=== PATIENT | male | born 1955 | race Caucasian/White ===

== ENCOUNTER 2016-09-19 21:15 | Inpatient (IN) | payer OTHER ==
[~2016-09-19] VITALS: Ht 177.8 cm; Wt 134.1 kg
[~2016-09-19 21:15] MED LIST: ASPI-1093 PO; ATOR40TA28 PO; BUPR75 PO; CARV6 PO; CLOP75 PO; FENO67 PO; FURO40 PO; GLUC1TAB PO; IPRA4AER IH; LISI40TA4 PO; OMEP20TA86 PO; OXYB5XL PO; POTA8TAB4 PO; VITAD1000 PO; [UNRECOGNIZED DRUG - CODE] PO
[2016-09-19 21:43] LABS: BASOPHILS % (AUTO) 0.6 % (0.0-2.0); EOSINOPHILS % (AUTO) 9.2 % (1.0-6.0); HEMATOCRIT 47.3 % (41-53); HEMOGLOBIN 15.9 g/dL (13.5-17.5); LYMPHOCYTES # (AUTO) 2.3 K/uL (1.0-4.8); LYMPHOCYTES % (AUTO) 24.4 % (22.0-44.0); MEAN CORPUSCULAR HEMOGLOBIN 31.5 pg (26.0-34.0); MEAN CORPUSCULAR HGB CONC 33.6 G/dL (31.0-37.0); MEAN CORPUSCULAR VOLUME 94 fL (80-100); MONOCYTES # (AUTO) 0.7 K/uL (0.1-1.0); MONOCYTES % (AUTO) 7.1 % (2.0-9.0); NEUTROPHILS # (AUTO) 5.6 K/uL (1.8-7.7); NEUTROPHILS % (AUTO) 58.7 % (40.0-70.0); PLATELET COUNT (AUTO) 226 K/uL (150-450); RED BLOOD CELL COUNT(AUTO) 5.04 MIL/uL (4.50-5.90); RED CELL DISTRIBUTION WIDTH 13.3 % (11.5-14.5); WHITE BLOOD COUNT (AUTO) 9.5 K/uL (4.5-11.0)
[2016-09-19 21:50] LABS: ANION GAP 7 mmol/L (8-16); CARBON DIOXIDE 31 mmol/L (22-29); CHLORIDE 106 mmol/L (98-107); CREATININE 0.96 mg/dL (0.60-1.30); GLOMERULAR FILTR. RATE CALC > 60 mL/min (>60); SODIUM SERUM 144 mmol/L (136-145); UREA NITROGEN, BLOOD 18 mg/dL (7-18)
[2016-09-19] MEDS ORDERED: IPRATROPIUM BROMIDE 0.5 MG/2.5 ML NEB SOLUTION NEB ONE ×2 (22:00→23:45)
[2016-09-19] MEDS ORDERED: ALBUTEROL SULFATE 2.5 MG/0.5 ML NEB SOLUTION NEB ONE (22:00)
[2016-09-19 22:11] LABS: B-TYPE NATRIURETIC PEPTIDE 17 pg/mL (0-100)
[2016-09-19 22:15] LABS: ALANINE AMINOTRANSFERASE 39 U/L (12-78); ALBUMIN 3.9 g/dL (3.4-5.0); ASPARTATE AMINOTRANSFERASE 22 U/L (15-37); BILIRUBIN,TOTAL 0.5 mg/dL (0.1-1.0); CREATINE KINASE MB 2.8 ng/mL (0-5); CREATINE KINASE, TOTAL 281 U/L (39-308); TOTAL PROTEIN, SERUM 7.2 g/dL (6.4-8.2)
[2016-09-19] MEDS ORDERED: MethylPREDNISolone SOD SUCC 125 MG/2 ML VIAL IVP ONE (23:00)
[2016-09-19] MEDS ORDERED: ACETAMINOPHEN 325 MG TABLET PO PRN (23:45)
[2016-09-19] MEDS ORDERED: 0.9% SODIUM CHLORIDE 10 ML SYRINGE IVP PRN (23:45)
[2016-09-19] MEDS ORDERED: OXYGEN THERAPY IH SCH (23:45)
[2016-09-19] MEDS ORDERED: ONDANSETRON HCL 4 MG/2 ML VIAL IVP PRN (23:45)
[2016-09-19] MEDS ORDERED: ALBUTEROL SULFATE 5 MG/ML 20 ML NEB SOLN [BULK] NEB ONE (23:45)
[2016-09-19] MEDS ORDERED: CefTRIAXone 1 GM/DEXTROSE 50 ML IV ONE (23:45)
[2016-09-20] MEDS ORDERED: GuaiFENesin/D-METHORPHAN/PHENYLEPH 5 ML LIQUID ORAL.SYG PO PRN (01:45)
[2016-09-20] MEDS ORDERED: MAGNESIUM HYDROXIDE SUSPENSION 30 ML UDCUP PO PRN (01:45)
[2016-09-20] MEDS ORDERED: IPRATROPIUM BROMIDE 0.5 MG/2.5 ML NEB SOLUTION NEB PRN (01:45)
[2016-09-20] MEDS ORDERED: ZOLPIDEM TARTRATE 5 MG TABLET PO PRN (01:45)
[2016-09-20] MEDS ORDERED: ACETAMINOPHEN 325 MG TABLET PO PRN (01:45)
[2016-09-20] MEDS ORDERED: ONDANSETRON HCL 4 MG/2 ML VIAL IVP PRN (01:45)
[2016-09-20] MEDS ORDERED: ALBUTEROL SULFATE 2.5 MG/0.5 ML NEB SOLUTION NEB PRN (01:45)
[2016-09-20] MEDS ORDERED: BISACODYL 10 MG RECTAL RECTAL SUPPOSITORY PR PRN (01:45)
[2016-09-20] MEDS ORDERED: IBUPROFEN 600 MG TABLET PO PRN (01:45)
[2016-09-20] MEDS ORDERED: BENZOCAINE/MENTHOL LOZENGE [8 LOZENGES/PACKET] MM PRN (02:00)
[2016-09-20] MEDS ORDERED: IPRATROPIUM BROMIDE 0.5 MG/2.5 ML NEB SOLUTION NEB SCH (03:00)
[2016-09-20] MEDS ORDERED: ALBUTEROL SULFATE 2.5 MG/0.5 ML NEB SOLUTION NEB SCH (03:00)
[2016-09-20 04:38] LABS: INFLUENZA TYPE B NEGATIVE FOR TYPE B (NEGATIVE)
[2016-09-20] MEDS: CHOLECALCIFEROL (VIT D3) 1,000 UNITS TABLET PO SCH (08:56)
[2016-09-20] MEDS: CARVEDILOL 25 MG TABLET PO SCH (08:56)
[2016-09-20] MEDS: FENOFIBRATE,MICRONIZED 67 MG CAPSULE PO SCH (08:56)
[2016-09-20] MEDS: CLOPIDOGREL BISULFATE 75 MG TABLET PO SCH (08:56)
[2016-09-20] MEDS: BuPROPion HCL 75 MG TABLET PO SCH ×2 (08:56→17:11)
[2016-09-20] MEDS: HEPARIN SODIUM,PORCINE 5,000 UNITS/ML VIAL SQ SCH (08:57)
[2016-09-20] MEDS: ASPIRIN 81 MG EC TABLET PO SCH (08:57)
[2016-09-20] MEDS: POTASSIUM CHLORIDE 8 MEQ ER TABLET PO SCH (08:57)
[2016-09-20] MEDS: MethylPREDNISolone SOD SUCC 125 MG/2 ML VIAL IVP SCH ×2 (08:57→16:42)
[2016-09-20] MEDS: OXYBUTYNIN CHLORIDE 5 MG ER TABLET PO SCH (08:57)
[2016-09-20] MEDS: FUROSEMIDE 40 MG TABLET PO SCH (08:58)
[2016-09-20] MEDS ORDERED: OMEPRAZOLE 20 MG CAPSULE PO SCH (09:00)
[2016-09-20 20:40] VITALS: BP 142/86
[2016-09-20 23:14] VITALS: BP 138/101
[2016-09-21] MEDS: OXYBUTYNIN CHLORIDE 5 MG ER TABLET PO SCH ×3 (00:43→21:08)
[2016-09-21] MEDS: ATORVASTATIN CALCIUM 40 MG TABLET PO SCH ×2 (00:43→20:59)
[2016-09-21] MEDS: FUROSEMIDE 40 MG TABLET PO SCH ×3 (00:43→20:58)
[2016-09-21] MEDS: CARVEDILOL 25 MG TABLET PO SCH ×3 (00:43→20:59)
[2016-09-21] MEDS: HEPARIN SODIUM,PORCINE 5,000 UNITS/ML VIAL SQ SCH ×3 (00:44→20:58)
[2016-09-21] MEDS: MethylPREDNISolone SOD SUCC 125 MG/2 ML VIAL IVP SCH ×4 (00:44→20:58)
[2016-09-21] MEDS: BuPROPion HCL 75 MG TABLET PO SCH ×4 (00:44→21:08)
[2016-09-21 04:59] VITALS: BP 113/72
[2016-09-21 07:06] LABS: EOSINOPHILS % (AUTO) 0 % (1.0-6.0); HEMATOCRIT 45.6 % (41-53); LYMPHOCYTES # (AUTO) 1.3 K/uL (1.0-4.8); LYMPHOCYTES % (AUTO) 6.4 % (22.0-44.0); MEAN CORPUSCULAR HEMOGLOBIN 31.3 pg (26.0-34.0); MEAN CORPUSCULAR VOLUME 95 fL (80-100); MONOCYTES # (AUTO) 0.5 K/uL (0.1-1.0); MONOCYTES % (AUTO) 2.6 % (2.0-9.0); NEUTROPHILS # (AUTO) 18.6 K/uL (1.8-7.7); PLATELET COUNT (AUTO) 240 K/uL (150-450); RED CELL DISTRIBUTION WIDTH 13.2 % (11.5-14.5); WHITE BLOOD COUNT (AUTO) 20.5 K/uL (4.5-11.0)
[2016-09-21 07:15] VITALS: BP 117/83
[2016-09-21 07:32] LABS: ALANINE AMINOTRANSFERASE 40 U/L (12-78); ALBUMIN 3.7 g/dL (3.4-5.0); ANION GAP 8 mmol/L (8-16); ASPARTATE AMINOTRANSFERASE 23 U/L (15-37); BILIRUBIN,TOTAL 0.6 mg/dL (0.1-1.0); CALCIUM, TOTAL 9.3 mg/dL (8.8-10.5); CARBON DIOXIDE 29 mmol/L (22-29); CHLORIDE 104 mmol/L (98-107); CREATININE 0.94 mg/dL (0.60-1.30); GLOMERULAR FILTR. RATE CALC > 60 mL/min (>60); PHOSPHORUS 3.7 mg/dL (2.5-4.9); SODIUM SERUM 141 mmol/L (136-145); TOTAL PROTEIN, SERUM 7.1 g/dL (6.4-8.2); UREA NITROGEN, BLOOD 26 mg/dL (7-18)
[2016-09-21] MEDS: POTASSIUM CHLORIDE 8 MEQ ER TABLET PO SCH (09:05)
[2016-09-21] MEDS: CHOLECALCIFEROL (VIT D3) 1,000 UNITS TABLET PO SCH (09:05)
[2016-09-21] MEDS: CLOPIDOGREL BISULFATE 75 MG TABLET PO SCH (09:05)
[2016-09-21] MEDS: FENOFIBRATE,MICRONIZED 67 MG CAPSULE PO SCH (09:05)
[2016-09-21] MEDS: ASPIRIN 81 MG EC TABLET PO SCH (09:05)
[2016-09-21] MEDS: PANTOPRAZOLE SODIUM 40 MG DR TABLET PO SCH (09:05)
[2016-09-21 11:35] VITALS: BP 125/70
[2016-09-21 16:19] VITALS: BP 106/54
[2016-09-21 19:40] VITALS: BP 136/59
[2016-09-21 23:26] VITALS: BP 126/63
[2016-09-22 04:44] VITALS: BP 99/58
[2016-09-22 07:12] VITALS: BP 102/52
[2016-09-22] MEDS: BuPROPion HCL 75 MG TABLET PO SCH ×2 (07:55→15:21)
[2016-09-22] MEDS: CARVEDILOL 25 MG TABLET PO SCH (07:56)
[2016-09-22] MEDS: PANTOPRAZOLE SODIUM 40 MG DR TABLET PO SCH (07:56)
[2016-09-22] MEDS: CLOPIDOGREL BISULFATE 75 MG TABLET PO SCH (07:56)
[2016-09-22] MEDS: FENOFIBRATE,MICRONIZED 67 MG CAPSULE PO SCH (07:56)
[2016-09-22] MEDS: MethylPREDNISolone SOD SUCC 125 MG/2 ML VIAL IVP SCH ×2 (07:56→15:21)
[2016-09-22] MEDS: POTASSIUM CHLORIDE 8 MEQ ER TABLET PO SCH (07:56)
[2016-09-22] MEDS: OXYBUTYNIN CHLORIDE 5 MG ER TABLET PO SCH (07:56)
[2016-09-22] MEDS: HEPARIN SODIUM,PORCINE 5,000 UNITS/ML VIAL SQ SCH (07:56)
[2016-09-22] MEDS: FUROSEMIDE 40 MG TABLET PO SCH (07:56)
[2016-09-22] MEDS: CHOLECALCIFEROL (VIT D3) 1,000 UNITS TABLET PO SCH (07:56)
[2016-09-22] MEDS: ASPIRIN 81 MG EC TABLET PO SCH (07:56)
[2016-09-22 11:51] VITALS: BP 107/56
[2016-09-22 16:02] VITALS: BP 116/59
== END 2016-09-22 18:10 | disposition left against medical advice (07) | DRG 133 ==
LOC: EDUNIT# 21:15 → EMS 21:16 → 6N 09-20 18:49
PROVIDERS: ADMIT Internal Medicine; ATTEND Internal Medicine
DX: J96.20 Acute and chronic respiratory failure, unspecified whether with hypoxia or hypercapnia (principal); I42.9 Cardiomyopathy, unspecified; J44.1 Chronic obstructive pulmonary disease with (acute) exacerbation; I11.0 Hypertensive heart disease with heart failure; I50.9 Heart failure, unspecified; Z68.41 Body mass index [BMI] 40.0-44.9, adult; E55.9 Vitamin D deficiency, unspecified; K21.9 Gastro-esophageal reflux disease without esophagitis; E66.9 Obesity, unspecified; E78.5 Hyperlipidemia, unspecified; F17.210 Nicotine dependence, cigarettes, uncomplicated; I25.10 Atherosclerotic heart disease of native coronary artery without angina pectoris; J45.909 Unspecified asthma, uncomplicated; Z60.2 Problems related to living alone; M19.90 Unspecified osteoarthritis, unspecified site; Z95.810 Presence of automatic (implantable) cardiac defibrillator; Z79.02 Long term (current) use of antithrombotics/antiplatelets; Z79.82 Long term (current) use of aspirin; Z79.51 Long term (current) use of inhaled steroids; Z79.899 Other long term (current) drug therapy; Z88.5 Allergy status to narcotic agent; Z71.6 Tobacco abuse counseling
CPT/HCPCS: 83735; 84100; 85379; 87040; 87804; 93005; 94060; 94640; 96361; 96374; 99285; J0696; J1644; J2930

== ENCOUNTER 2016-10-18 19:17 | Inpatient (IN) | payer OTHER ==
[~2016-10-18] VITALS: Ht 177.8 cm; Wt 132.0 kg
[2016-10-18] MEDS ORDERED: CARV25 PO (19:38)
[2016-10-18] MEDS ORDERED: ATOR40TA28 PO (19:38)
[2016-10-18 20:22] LABS: BASOPHILS % (AUTO) 0.6 % (0.0-2.0); EOSINOPHILS % (AUTO) 7.5 % (1.0-6.0); HEMATOCRIT 47.9 % (41-53); HEMOGLOBIN 16.2 g/dL (13.5-17.5); LYMPHOCYTES # (AUTO) 2.3 K/uL (1.0-4.8); MEAN CORPUSCULAR HEMOGLOBIN 31.6 pg (26.0-34.0); MEAN CORPUSCULAR HGB CONC 33.8 G/dL (31.0-37.0); MEAN CORPUSCULAR VOLUME 93 fL (80-100); MONOCYTES # (AUTO) 0.8 K/uL (0.1-1.0); MONOCYTES % (AUTO) 8.2 % (2.0-9.0); NEUTROPHILS # (AUTO) 6.1 K/uL (1.8-7.7); NEUTROPHILS % (AUTO) 60.7 % (40.0-70.0); PLATELET COUNT (AUTO) 275 K/uL (150-450); RED BLOOD CELL COUNT(AUTO) 5.12 MIL/uL (4.50-5.90); RED CELL DISTRIBUTION WIDTH 13.3 % (11.5-14.5)
[2016-10-18 20:25] LABS: ANION GAP 10 mmol/L (8-16); CALCIUM, TOTAL 9.2 mg/dL (8.8-10.5); CARBON DIOXIDE 30 mmol/L (22-29); CHLORIDE 100 mmol/L (98-107); CREATININE 1.36 mg/dL (0.60-1.30); GLOMERULAR FILTR. RATE CALC 53 mL/min (>60); SODIUM SERUM 140 mmol/L (136-145); UREA NITROGEN, BLOOD 26 mg/dL (7-18)
[2016-10-18] MEDS ORDERED: IPRATROPIUM BROMIDE 0.5 MG/2.5 ML NEB SOLUTION NEB ONE ×3 (20:30→21:30)
[2016-10-18] MEDS ORDERED: ALBUTEROL SULFATE 2.5 MG/0.5 ML NEB SOLUTION NEB ONE (20:30)
[2016-10-18 20:50] LABS: ALANINE AMINOTRANSFERASE 60 U/L (12-78); ALBUMIN 4.2 g/dL (3.4-5.0); ASPARTATE AMINOTRANSFERASE 30 U/L (15-37); BILIRUBIN,TOTAL 0.9 mg/dL (0.1-1.0); CREATINE KINASE MB 2.4 ng/mL (0-5); CREATINE KINASE, TOTAL 272 U/L (39-308); TOTAL PROTEIN, SERUM 7.8 g/dL (6.4-8.2)
[2016-10-18 20:59] LABS: B-TYPE NATRIURETIC PEPTIDE 10 pg/mL (0-100)
[2016-10-18] MEDS ORDERED: ALBUTEROL SULFATE 5 MG/ML 20 ML NEB SOLN [BULK] NEB ONE ×2 (21:00→21:30)
[2016-10-18] MEDS ORDERED: MethylPREDNISolone SOD SUCC 125 MG/2 ML VIAL IVP ONE (21:30)
[2016-10-19] MEDS ORDERED: IPRATROPIUM BROMIDE 0.5 MG/2.5 ML NEB SOLUTION NEB ONE (00:45)
[2016-10-19] MEDS ORDERED: ALBUTEROL SULFATE 5 MG/ML 20 ML NEB SOLN [BULK] NEB ONE (00:45)
[2016-10-19] MEDS ORDERED: 0.9% SODIUM CHLORIDE 5 ML NEB SOLUTION NEB ONE (01:02)
[2016-10-19] MEDS ORDERED: 0.9% SODIUM CHLORIDE 10 ML SYRINGE IVP PRN (02:45)
[2016-10-19] MEDS ORDERED: ACETAMINOPHEN 325 MG TABLET PO PRN ×2 (02:45→06:45)
[2016-10-19] MEDS ORDERED: MAGNESIUM SULFATE 2 GM in DEXTROSE 5%-WATER 50 ML IV ONE (02:45)
[2016-10-19] MEDS ORDERED: ONDANSETRON HCL 4 MG/2 ML VIAL IVP PRN (02:45)
[2016-10-19 03:56] VITALS: BP 143/94
[2016-10-19] MEDS ORDERED: IBUP100O11 PO (04:07)
[2016-10-19] MEDS ORDERED: MAGNESIUM HYDROXIDE SUSPENSION 30 ML UDCUP PO PRN (06:45)
[2016-10-19] MEDS: MethylPREDNISolone SOD SUCC 125 MG/2 ML VIAL IVP SCH ×4 (06:55→23:53)
[2016-10-19 08:00] VITALS: BP 119/73
[2016-10-19] MEDS: ALBUTEROL SULFATE 2.5 MG/0.5 ML NEB SOLUTION NEB PRN ×4 (08:33→19:15)
[2016-10-19] MEDS: IPRATROPIUM BROMIDE 0.5 MG/2.5 ML NEB SOLUTION NEB PRN ×4 (08:33→19:15)
[2016-10-19] MEDS: DOCUSATE SODIUM 100 MG CAPSULE PO SCH ×2 (08:33→20:53)
[2016-10-19] MEDS: PANTOPRAZOLE SODIUM 40 MG DR TABLET PO SCH (08:33)
[2016-10-19] MEDS: HEPARIN SODIUM,PORCINE 5,000 UNITS/ML VIAL SQ SCH ×3 (08:34→23:53)
[2016-10-19] MEDS: ASPIRIN 81 MG CHEWABLE TABLET PO SCH (08:34)
[2016-10-19 12:00] VITALS: BP 115/71
[2016-10-19 16:03] VITALS: BP 121/83
[2016-10-19 19:38] VITALS: BP 114/72
[2016-10-19] MEDS ORDERED: SODIUM CHLORIDE 0.9% 500 ML IV ONE (20:21)
[2016-10-19] MEDS: ZOLPIDEM TARTRATE 5 MG TABLET PO PRN (20:53)
[2016-10-19 23:09] VITALS: BP 110/65
[2016-10-20 04:28] VITALS: BP 100/72
[2016-10-20] MEDS: MethylPREDNISolone SOD SUCC 125 MG/2 ML VIAL IVP SCH ×4 (05:47→23:51)
[2016-10-20 06:26] LABS: ANION GAP 11 mmol/L (8-16); CALCIUM, TOTAL 9.3 mg/dL (8.8-10.5); CARBON DIOXIDE 27 mmol/L (22-29); CHLORIDE 103 mmol/L (98-107); CREATININE 1.16 mg/dL (0.60-1.30); GLOMERULAR FILTR. RATE CALC > 60 mL/min (>60); POTASSIUM 4.2 mmol/L (3.5-5.1); SODIUM SERUM 141 mmol/L (136-145); UREA NITROGEN, BLOOD 39 mg/dL (7-18)
[2016-10-20 07:10] VITALS: BP 120/80
[2016-10-20] MEDS: ASPIRIN 81 MG CHEWABLE TABLET PO SCH (08:57)
[2016-10-20] MEDS: HEPARIN SODIUM,PORCINE 5,000 UNITS/ML VIAL SQ SCH ×3 (08:57→23:51)
[2016-10-20] MEDS: PANTOPRAZOLE SODIUM 40 MG DR TABLET PO SCH (08:57)
[2016-10-20] MEDS: DOCUSATE SODIUM 100 MG CAPSULE PO SCH ×2 (08:57→20:26)
[2016-10-20 11:10] VITALS: BP 126/69
[2016-10-20] MEDS ORDERED: 0.9% SODIUM CHLORIDE 10 ML SYRINGE IVP PRN (14:30)
[2016-10-20 16:11] VITALS: BP 132/74
[2016-10-20] MEDS ORDERED: FENOFIBRATE,MICRONIZED 67 MG CAPSULE PO SCH (16:30)
[2016-10-20] MEDS: NICOTINE 21 MG/24 HOUR PATCH TD SCH (17:37)
[2016-10-20] MEDS: CLOPIDOGREL BISULFATE 75 MG TABLET PO SCH (17:38)
[2016-10-20] MEDS: CHOLECALCIFEROL (VIT D3) 1,000 UNITS TABLET PO SCH (17:38)
[2016-10-20] MEDS: ASPIRIN 81 MG EC TABLET PO SCH (17:38)
[2016-10-20] MEDS: LISINOPRIL 20 MG TABLET PO SCH (17:38)
[2016-10-20] MEDS: POTASSIUM CHLORIDE 8 MEQ ER TABLET PO SCH (17:39)
[2016-10-20] MEDS: FUROSEMIDE 40 MG TABLET PO SCH ×2 (17:56→20:27)
[2016-10-20 20:05] VITALS: BP 124/66
[2016-10-20] MEDS: OXYBUTYNIN CHLORIDE 5 MG ER TABLET PO SCH (20:26)
[2016-10-20] MEDS: ATORVASTATIN CALCIUM 40 MG TABLET PO SCH (20:26)
[2016-10-20] MEDS: CARVEDILOL 25 MG TABLET PO SCH (20:26)
[2016-10-20] MEDS: BuPROPion HCL 75 MG TABLET PO SCH (20:26)
[2016-10-20] MEDS ORDERED: BuPROPion HCL 75 MG TABLET PO SCH (21:00)
[2016-10-20] MEDS ORDERED: FUROSEMIDE 40 MG TABLET PO SCH (21:00)
[2016-10-20] MEDS: ZOLPIDEM TARTRATE 5 MG TABLET PO PRN (23:49)
[2016-10-20 23:54] VITALS: BP 112/86
[2016-10-21 04:58] VITALS: BP 102/57
[2016-10-21] MEDS: MethylPREDNISolone SOD SUCC 125 MG/2 ML VIAL IVP SCH (05:39)
[2016-10-21 08:10] VITALS: BP 130/64
[2016-10-21] MEDS: HEPARIN SODIUM,PORCINE 5,000 UNITS/ML VIAL SQ SCH ×3 (08:33→23:34)
[2016-10-21] MEDS: DOCUSATE SODIUM 100 MG CAPSULE PO SCH ×2 (08:35→20:31)
[2016-10-21] MEDS: LISINOPRIL 20 MG TABLET PO SCH (08:37)
[2016-10-21] MEDS: BuPROPion HCL 75 MG TABLET PO SCH ×3 (08:37→21:31)
[2016-10-21] MEDS: PredniSONE 20 MG TABLET PO SCH (08:37)
[2016-10-21] MEDS: NICOTINE 21 MG/24 HOUR PATCH TD SCH (08:38)
[2016-10-21] MEDS: CHOLECALCIFEROL (VIT D3) 1,000 UNITS TABLET PO SCH (08:39)
[2016-10-21] MEDS: CARVEDILOL 25 MG TABLET PO SCH ×2 (08:39→20:31)
[2016-10-21] MEDS: OXYBUTYNIN CHLORIDE 5 MG ER TABLET PO SCH ×2 (08:39→20:31)
[2016-10-21] MEDS: ASPIRIN 81 MG EC TABLET PO SCH (08:40)
[2016-10-21] MEDS: FUROSEMIDE 40 MG TABLET PO SCH ×2 (08:40→20:31)
[2016-10-21] MEDS: PANTOPRAZOLE SODIUM 40 MG DR TABLET PO SCH (08:41)
[2016-10-21] MEDS: CLOPIDOGREL BISULFATE 75 MG TABLET PO SCH (08:42)
[2016-10-21] MEDS: POTASSIUM CHLORIDE 8 MEQ ER TABLET PO SCH (10:33)
[2016-10-21 11:46] VITALS: BP 97/65
[2016-10-21 16:28] VITALS: BP 109/50
[2016-10-21 20:02] VITALS: BP 96/61
[2016-10-21] MEDS: ATORVASTATIN CALCIUM 40 MG TABLET PO SCH (20:31)
[2016-10-21] MEDS: ZOLPIDEM TARTRATE 5 MG TABLET PO PRN (21:31)
[2016-10-21 23:40] VITALS: BP 91/62
[2016-10-22 05:06] VITALS: BP 98/68
[2016-10-22] MEDS: LISINOPRIL 20 MG TABLET PO SCH (08:07)
[2016-10-22] MEDS: DOCUSATE SODIUM 100 MG CAPSULE PO SCH (08:07)
[2016-10-22] MEDS: CHOLECALCIFEROL (VIT D3) 1,000 UNITS TABLET PO SCH (08:07)
[2016-10-22] MEDS: ASPIRIN 81 MG EC TABLET PO SCH (08:07)
[2016-10-22] MEDS: CLOPIDOGREL BISULFATE 75 MG TABLET PO SCH (08:07)
[2016-10-22] MEDS: NICOTINE 21 MG/24 HOUR PATCH TD SCH (08:08)
[2016-10-22] MEDS: OXYBUTYNIN CHLORIDE 5 MG ER TABLET PO SCH (08:08)
[2016-10-22] MEDS: BuPROPion HCL 75 MG TABLET PO SCH (08:08)
[2016-10-22] MEDS: PredniSONE 20 MG TABLET PO SCH (08:08)
[2016-10-22] MEDS: PANTOPRAZOLE SODIUM 40 MG DR TABLET PO SCH (08:08)
[2016-10-22] MEDS: CARVEDILOL 25 MG TABLET PO SCH (08:08)
[2016-10-22] MEDS: POTASSIUM CHLORIDE 8 MEQ ER TABLET PO SCH (08:09)
[2016-10-22] MEDS: FUROSEMIDE 40 MG TABLET PO SCH (08:13)
[2016-10-22] MEDS: HEPARIN SODIUM,PORCINE 5,000 UNITS/ML VIAL SQ SCH (08:14)
[2016-10-22 08:33] VITALS: BP 113/65
[2016-10-22 11:44] VITALS: BP 96/72
== END 2016-10-22 14:03 | disposition home or self-care (01) | DRG 140 ==
LOC: EMS 19:21 → 6N 10-19 03:00
PROVIDERS: ADMIT Internal Medicine; ATTEND Internal Medicine
DX: J44.1 Chronic obstructive pulmonary disease with (acute) exacerbation (principal); N17.9 Acute kidney failure, unspecified; I42.9 Cardiomyopathy, unspecified; E44.0 Moderate protein-calorie malnutrition; Z68.41 Body mass index [BMI] 40.0-44.9, adult; I11.0 Hypertensive heart disease with heart failure; I50.9 Heart failure, unspecified; E66.01 Morbid (severe) obesity due to excess calories; I25.10 Atherosclerotic heart disease of native coronary artery without angina pectoris; J11.1 Influenza due to unidentified influenza virus with other respiratory manifestations; F17.210 Nicotine dependence, cigarettes, uncomplicated; E78.5 Hyperlipidemia, unspecified; F15.90 Other stimulant use, unspecified, uncomplicated; F25.9 Schizoaffective disorder, unspecified; R73.9 Hyperglycemia, unspecified; R32 Unspecified urinary incontinence; E86.0 Dehydration; Z53.29 Procedure and treatment not carried out because of patient's decision for other reasons; Z95.810 Presence of automatic (implantable) cardiac defibrillator; Z22.322 Carrier or suspected carrier of Methicillin resistant Staphylococcus aureus; Z79.82 Long term (current) use of aspirin; Z88.6 Allergy status to analgesic agent; M19.90 Unspecified osteoarthritis, unspecified site
CPT/HCPCS: 87040; 87081; 93005; 94640; 94644; 96361; 96374; 99285; J1644; J2930; J3475; J7040; J7060

== ENCOUNTER 2016-12-07 23:45 | Inpatient (IN) | payer OTHER ==
[~2016-12-07] VITALS: Ht 177.8 cm; Wt 135.9 kg
[~2016-12-07 23:45] MED LIST changes: -FENO67 PO; -GLUC1TAB PO; -IPRA4AER IH; -LISI40TA4 PO
[2016-12-08] VITALS (7 sets, daily range): BP systolic 106–144; BP diastolic 65–82
[2016-12-08] MEDS ORDERED: MethylPREDNISolone SOD SUCC 125 MG/2 ML VIAL IVP ONE ×2 (00:15→08:00)
[2016-12-08] MEDS ORDERED: IPRATROPIUM BROMIDE 0.5 MG/2.5 ML NEB SOLUTION NEB ONE ×2 (00:15→03:15)
[2016-12-08] MEDS ORDERED: ALBUTEROL SULFATE 5 MG/ML 20 ML NEB SOLN [BULK] NEB ONE ×2 (00:15→03:15)
[2016-12-08 00:21] LABS: BASOPHILS % (AUTO) 0.4 % (0.0-2.0); EOSINOPHILS % (AUTO) 9.7 % (1.0-6.0); HEMATOCRIT 43.4 % (41-53); LYMPHOCYTES # (AUTO) 2.6 K/uL (1.0-4.8); LYMPHOCYTES % (AUTO) 20.9 % (22.0-44.0); MEAN CORPUSCULAR HEMOGLOBIN 30.9 pg (26.0-34.0); MEAN CORPUSCULAR HGB CONC 32.3 G/dL (31.0-37.0); MEAN CORPUSCULAR VOLUME 95 fL (80-100); MONOCYTES # (AUTO) 0.9 K/uL (0.1-1.0); NEUTROPHILS # (AUTO) 7.6 K/uL (1.8-7.7); PLATELET COUNT (AUTO) 256 K/uL (150-450); RED BLOOD CELL COUNT(AUTO) 4.55 MIL/uL (4.50-5.90); RED CELL DISTRIBUTION WIDTH 14.1 % (11.5-14.5); WHITE BLOOD COUNT (AUTO) 12.3 K/uL (4.5-11.0)
[2016-12-08 00:30] LABS: ANION GAP 7 mmol/L (8-16); CALCIUM, TOTAL 9.2 mg/dL (8.8-10.5); CARBON DIOXIDE 34 mmol/L (22-29); CHLORIDE 103 mmol/L (98-107); CREATININE 1.01 mg/dL (0.60-1.30); GLOMERULAR FILTR. RATE CALC > 60 mL/min (>60); POTASSIUM 4.2 mmol/L (3.5-5.1); SODIUM SERUM 144 mmol/L (136-145); UREA NITROGEN, BLOOD 21 mg/dL (7-18)
[2016-12-08 00:31] LABS: INR 1.1 (0.9-1.1); PROTHROMBIN TIME 11.2 SEC (9.4-11.6)
[2016-12-08 00:42] LABS: B-TYPE NATRIURETIC PEPTIDE 12 pg/mL (0-100)
[2016-12-08] MEDS ORDERED: 0.9% SODIUM CHLORIDE 15 ML NEB SOLUTION NEB ONE ×2 (00:46→03:10)
[2016-12-08 00:55] LABS: ALANINE AMINOTRANSFERASE 51 U/L (12-78); ASPARTATE AMINOTRANSFERASE 25 U/L (15-37); BILIRUBIN,TOTAL 0.7 mg/dL (0.1-1.0); CREATINE KINASE MB 2.6 ng/mL (0-5); CREATINE KINASE, TOTAL 234 U/L (39-308); TOTAL PROTEIN, SERUM 7.1 g/dL (6.4-8.2)
[2016-12-08] MEDS ORDERED: 0.9% SODIUM CHLORIDE 10 ML SYRINGE IVP PRN (03:30)
[2016-12-08] MEDS ORDERED: ALBUTEROL SULFATE 2.5 MG/0.5 ML NEB SOLUTION NEB PRN ×2 (03:30→12:15)
[2016-12-08] MEDS ORDERED: ACETAMINOPHEN 325 MG TABLET PO PRN ×2 (03:30→12:15)
[2016-12-08] MEDS ORDERED: ONDANSETRON HCL 4 MG/2 ML VIAL IVP PRN ×2 (03:30→12:15)
[2016-12-08] MEDS ORDERED: LEVOFLOXACIN 500 MG/D5% WATER 100 ML IV SCH (04:00)
[2016-12-08] MEDS: MethylPREDNISolone SOD SUCC 125 MG/2 ML VIAL IVP SCH ×4 (06:52→23:40)
[2016-12-08] MEDS: ALBUTEROL SULFATE 2.5 MG/0.5 ML NEB SOLUTION NEB SCH ×5 (07:00→23:40)
[2016-12-08] MEDS ORDERED: IPRATROPIUM BROMIDE 0.5 MG/2.5 ML NEB SOLUTION NEB PRN (12:15)
[2016-12-08] MEDS ORDERED: OxyCODONE HCL/ACETAMINOPHEN 5-325 MG TABLET PO PRN (12:15)
[2016-12-08] MEDS ORDERED: MAGNESIUM HYDROXIDE SUSPENSION 30 ML UDCUP PO PRN (12:15)
[2016-12-08] MEDS ORDERED: MORPHINE SULFATE 2 MG/ML SYRINGE IVP PRN (12:15)
[2016-12-08] MEDS ORDERED: BISACODYL 10 MG RECTAL RECTAL SUPPOSITORY PR PRN (12:15)
[2016-12-08] MEDS: IPRATROPIUM BROMIDE 0.5 MG/2.5 ML NEB SOLUTION NEB SCH ×3 (14:54→23:40)
[2016-12-08] MEDS: HEPARIN SODIUM,PORCINE 5,000 UNITS/ML VIAL SQ SCH ×2 (15:40→23:40)
[2016-12-08] MEDS: BuPROPion HCL 75 MG TABLET PO SCH ×2 (15:40→19:52)
[2016-12-08] MEDS: ATORVASTATIN CALCIUM 40 MG TABLET PO SCH (19:52)
[2016-12-08] MEDS: CARVEDILOL 25 MG TABLET PO SCH (19:52)
[2016-12-08] MEDS: DOCUSATE SODIUM 100 MG CAPSULE PO SCH (19:52)
[2016-12-08] MEDS: FUROSEMIDE 40 MG TABLET PO SCH (19:52)
[2016-12-08] MEDS: ZOLPIDEM TARTRATE 5 MG TABLET PO PRN (23:40)
[2016-12-09] MEDS: ZOLPIDEM TARTRATE 5 MG TABLET PO PRN ×2 (00:06→23:59)
[2016-12-09] MEDS: IPRATROPIUM BROMIDE 0.5 MG/2.5 ML NEB SOLUTION NEB SCH ×6 (03:24→23:18)
[2016-12-09] MEDS: ALBUTEROL SULFATE 2.5 MG/0.5 ML NEB SOLUTION NEB SCH ×6 (03:24→23:18)
[2016-12-09 04:06] VITALS: BP 125/88
[2016-12-09] MEDS: MethylPREDNISolone SOD SUCC 125 MG/2 ML VIAL IVP SCH ×4 (05:36→23:57)
[2016-12-09 07:30] VITALS: BP 134/96
[2016-12-09] MEDS: HEPARIN SODIUM,PORCINE 5,000 UNITS/ML VIAL SQ SCH ×3 (08:04→23:58)
[2016-12-09] MEDS: CHOLECALCIFEROL (VIT D3) 2,000 UNITS TABLET PO SCH (08:05)
[2016-12-09] MEDS: CARVEDILOL 25 MG TABLET PO SCH ×2 (08:05→20:34)
[2016-12-09] MEDS: PANTOPRAZOLE SODIUM 40 MG DR TABLET PO SCH (08:05)
[2016-12-09] MEDS: FUROSEMIDE 40 MG TABLET PO SCH ×3 (08:05→20:40)
[2016-12-09] MEDS: ASPIRIN 81 MG EC TABLET PO SCH (08:05)
[2016-12-09] MEDS: POTASSIUM CHLORIDE 8 MEQ ER TABLET PO SCH (08:05)
[2016-12-09] MEDS: DOCUSATE SODIUM 100 MG CAPSULE PO SCH ×2 (08:05→20:33)
[2016-12-09] MEDS: CLOPIDOGREL BISULFATE 75 MG TABLET PO SCH (08:05)
[2016-12-09] MEDS: MULTIVITAMINS WITH MINERALS, THERAPEUTIC TABLET PO SCH (08:05)
[2016-12-09] MEDS: BuPROPion HCL 75 MG TABLET PO SCH ×3 (08:05→20:33)
[2016-12-09 11:30] VITALS: BP 110/69
[2016-12-09] MEDS: MUPIROCIN CALCIUM 2% 22 GM OINTMENT NASAL SCH ×2 (14:16→20:33)
[2016-12-09 15:38] VITALS: BP 130/81
[2016-12-09 19:28] VITALS: BP 138/77
[2016-12-09] MEDS: ATORVASTATIN CALCIUM 40 MG TABLET PO SCH (20:34)
[2016-12-09 23:28] VITALS: BP 115/67
[2016-12-10] MEDS ORDERED: 0.9% SODIUM CHLORIDE 10 ML SYRINGE IVP PRN (01:00)
[2016-12-10] MEDS: IPRATROPIUM BROMIDE 0.5 MG/2.5 ML NEB SOLUTION NEB SCH ×3 (03:10→12:21)
[2016-12-10] MEDS: ALBUTEROL SULFATE 2.5 MG/0.5 ML NEB SOLUTION NEB SCH ×3 (03:11→12:21)
[2016-12-10 05:05] VITALS: BP 114/57
[2016-12-10] MEDS: MethylPREDNISolone SOD SUCC 125 MG/2 ML VIAL IVP SCH ×2 (06:01→12:20)
[2016-12-10 07:28] VITALS: BP 135/50
[2016-12-10] MEDS: DOCUSATE SODIUM 100 MG CAPSULE PO SCH (07:42)
[2016-12-10] MEDS: ASPIRIN 81 MG EC TABLET PO SCH (07:42)
[2016-12-10] MEDS: CARVEDILOL 25 MG TABLET PO SCH (07:42)
[2016-12-10] MEDS: CLOPIDOGREL BISULFATE 75 MG TABLET PO SCH (07:42)
[2016-12-10] MEDS: MULTIVITAMINS WITH MINERALS, THERAPEUTIC TABLET PO SCH (07:42)
[2016-12-10] MEDS: FUROSEMIDE 40 MG TABLET PO SCH (07:42)
[2016-12-10] MEDS: PANTOPRAZOLE SODIUM 40 MG DR TABLET PO SCH (07:42)
[2016-12-10] MEDS: BuPROPion HCL 75 MG TABLET PO SCH (07:43)
[2016-12-10] MEDS: HEPARIN SODIUM,PORCINE 5,000 UNITS/ML VIAL SQ SCH (07:43)
[2016-12-10] MEDS: CHOLECALCIFEROL (VIT D3) 2,000 UNITS TABLET PO SCH (07:43)
[2016-12-10] MEDS: POTASSIUM CHLORIDE 8 MEQ ER TABLET PO SCH (07:47)
[2016-12-10] MEDS: MUPIROCIN CALCIUM 2% 22 GM OINTMENT NASAL SCH (07:47)
[2016-12-10 11:28] VITALS: BP 132/57
== END 2016-12-10 14:15 | disposition home or self-care (01) | DRG 133 ==
LOC: EMS 23:46 → 4E 12-08 03:52 → 6N 12-09 15:03
PROVIDERS: ADMIT Hospitalist; ATTEND Hospitalist
DX: J96.01 Acute respiratory failure with hypoxia (principal); I42.9 Cardiomyopathy, unspecified; Z68.41 Body mass index [BMI] 40.0-44.9, adult; J44.1 Chronic obstructive pulmonary disease with (acute) exacerbation; I11.0 Hypertensive heart disease with heart failure; I50.40 Unspecified combined systolic (congestive) and diastolic (congestive) heart failure; E66.01 Morbid (severe) obesity due to excess calories; I25.10 Atherosclerotic heart disease of native coronary artery without angina pectoris; M19.90 Unspecified osteoarthritis, unspecified site; E78.5 Hyperlipidemia, unspecified; K21.9 Gastro-esophageal reflux disease without esophagitis; F17.210 Nicotine dependence, cigarettes, uncomplicated; Z88.5 Allergy status to narcotic agent; Z79.02 Long term (current) use of antithrombotics/antiplatelets; Z79.82 Long term (current) use of aspirin; Z79.899 Other long term (current) drug therapy; Z95.810 Presence of automatic (implantable) cardiac defibrillator; Z82.49 Family history of ischemic heart disease and other diseases of the circulatory system
CPT/HCPCS: 87081; 93005; 94640; 94644; 96365; 96375; 99285; J1644; J1956; J2930